=== PATIENT | male | born 1990 | race Two or more races ===

== ENCOUNTER 2021-01-31 16:56 | Emergency (ER) | payer OTHER ==
[~2021-01-31] VITALS: Ht 172.7 cm; Wt 74.1 kg
[2021-01-31 17:15] VITALS: BP 134/93
== END 2021-01-31 17:50 | disposition home or self-care (01) ==
LOC: ER 16:58
DX: R50.9 Fever, unspecified (principal); Z20.822 Contact with and (suspected) exposure to COVID-19; R05.9 Cough, unspecified; R51.9 Headache, unspecified
CPT/HCPCS: 36415; 99283; U0003; U0005

== ENCOUNTER 2021-03-31 07:21 | Emergency (ER) | payer OTHER ==
[~2021-03-31] VITALS: Ht 170.2 cm; Wt 75.0 kg
[2021-03-31 07:45] VITALS: BP 114/74
[2021-03-31] MEDS ORDERED: naproxen 500mg tablet PO ONE (12:15)
[2021-03-31] MEDS ORDERED: NAPR-56 PO (12:17)
== END 2021-03-31 18:47 | disposition home or self-care (01) ==
LOC: ER 07:21
DX: S92.514A Nondisplaced fracture of proximal phalanx of right lesser toe(s), initial encounter for closed fracture (principal); Z79.899 Other long term (current) drug therapy; W22.8XXA Striking against or struck by other objects, initial encounter; Y93.89 Activity, other specified; Y92.89 Other specified places as the place of occurrence of the external cause; Y99.8 Other external cause status
CPT/HCPCS: 29515; 73660; 99283